=== PATIENT | female | born 1990 | race Caucasian/White ===

== ENCOUNTER 2016-08-02 14:57 | Emergency (ER) | payer OTHER ==
[~2016-08-02] VITALS: Wt 70.0 kg
[~2016-08-02 14:57] MED LIST: NITR-58 PO
--- NOTE | 2016-08-02 16:51 | ERD ---
ER Documentation Chief Complaint Date/Time DATE: 08/02/16 TIME: 16:49 Chief Complaint abdominal pain 4 mos preg. no vag bleed. no sob noted. HPI Patient is a 26-year-old female who is who presents to the ED with body aches, chills that started this morning. She states that her son has had a fever and has had a cough. She also complains of mild pelvic pain. Her last normal menstrual period was 03/19/16. She is approximately 19 weeks . Her OB [facility] She denies vaginal bleeding. She denies nausea, vomiting, diarrhea. She does have a history of constipation and is taking MiraLAX as prescribed by her physician. She states that her last bowel movement was this morning. She also complains of mild reflux. She denies weakness, dizziness. She denies chest pain, shortness of breath, cough or difficulty breathing. She denies leg pain or swelling. ROS All systems reviewed and are negative except as per history of present illness. Medications Home Meds Active Scripts Acetaminophen* (Tylophen*) 500 Mg Capsule, 1 CAP PO Q6H Y for PAIN AND OR ELEVATED TEMP, #20 CAP Prov:OANH MEEHAN PA-C 08/02/16 Nitrofurantoin Monohyd Macrocr* (Macrobid*) 100 Mg Capsr, 100 MG PO BID for 7 Days, CAP Prov:TICO KNOTT 04/30/16 Allergies Allergies: Coded Allergies: No Known Allergy (Unverified , 08/02/16) PMhx/Soc History of Surgery: Yes (GALLSTONES) Anesthesia Reaction: No Hx Neurological Disorder: No Hx Respiratory Disorders: No Hx Cardiac Disorders: No Hx Psychiatric Problems: No Hx Miscellaneous Medical Probl: Yes (gallstones) Hx Alcohol Use: No Hx Substance Use: No Hx Tobacco Use: No Smoking Status: Never smoker Physical Exam Vitals Vital Signs Date Time Temp Pulse Resp B/P Pulse Ox O2 Delivery O2 Flow Rate FiO2 08/02/16 18:07 98.2 78 20 119/61 98 Room Air 08/02/16 15:04 98.6 89 20 117/58 98 Physical Exam GENERAL: Well-developed, well-nourished female. Appears in no acute distress. HEAD: Normocephalic, atraumatic. EYES: Pupils are equally reactive bilaterally. EOMs grossly intact. No conjunctival erythema. ENT: Moist mucous membranes. No uvula deviation. No kissing tonsils. No exudates. NECK: Supple. No lymphadenopathy or thyromegaly. No meningismus. negative kernig. negative brudinski. LUNG: Clear to auscultation bilaterally. No rhonchi, wheezing, rales or coarse breath sounds. HEART: Regular rate and rhythm. No murmurs, rubs or gallops. ABDOMEN: No scars, ecchymosis or rashes noted. Soft, nontender, and nondistended. Positive bowel sounds in all four quadrants. No rebound tenderness , no guarding. (-) McBurneys point tenderness. No CVA tenderness. Mild pelvic tenderness BACK: No midline tenderness. Extremities: Equal pulses bilaterally. No peripheral clubbing, cyanosis or edema. No unilateral leg swelling. Negative Homans sign NEUROLOGIC: Alert and oriented. Moving all four extremities. 5/5 strength in all extremities. Normal speech. Steady gait. SKIN: Normal color. Warm and dry. No rashes or lesions. Capillary refill < 2 seconds Result Diagram: 08/02/16 1645 08/02/16 1645 Results 24 hrs Laboratory Tests Test 08/02/16 16:45 08/02/16 17:20 Alanine Aminotransferase (ALT/SGPT) 86IU/L Albumin 3.9g/dl Albumin/Globulin Ratio 1.21 Alkaline Phosphatase 86IU/L Anion Gap 14 Aspartate Amino Transf (AST/SGOT) 48IU/L Basophils # 0.010^3/ul Basophils % 0.1% Beta HCG, Quantitative 92903.0mIU/ml Blood Morphology Comment Blood Urea Nitrogen 6mg/dl Calcium Level 9.4mg/dl Carbon Dioxide Level 25mmol/L Chloride Level 103mmol/L Creatinine 0.46mg/dl Direct Bilirubin 0.00mg/dl Eosinophils # 0.210^3/ul Eosinophils % 2.3% Globulin 3.20g/dl Glucose Level 107mg/dl Hematocrit 37.8% Hemoglobin 12.8g/dl Indirect Bilirubin 0.6mg/dl Lipase 76U/L Lymphocytes # 0.510^3/ul Lymphocytes % 6.3% Mean Corpuscular Hemoglobin 30.7pg Mean Corpuscular Hemoglobin Concent 33.9g/dl Mean Corpuscular Volume 90.4fl Mean Platelet Volume 10.9fl Monocytes # 0.510^3/ul Monocytes % 6.6% Neutrophils # 7.110^3/ul Neutrophils % 84.7% Nucleated Red Blood Cells # 0.010^3/ul Nucleated Red Blood Cells % 0.0/100WBC Platelet Count 34180^3/UL Potassium Level 3.9mmol/L Red Blood Count 4.1810^6/ul Red Cell Distribution Width 14.1% Sodium Level 138mmol/L Total Bilirubin 0.6mg/dl Total Protein 7.1g/dl White Blood Count 8.310^3/ul Urine Bacteria RARE Urine Bilirubin NEGATIVE Urine Clarity CLEAR Urine Color LT. YELLOW Urine Glucose NEGATIVE% Urine Hemoglobin NEGATIVE Urine Ketones NEGATIVE Urine Leukocyte Esterase TRACE Urine Microscopic RBC 0-2/HPF Urine Microscopic WBC 0-2/HPF Urine Nitrite NEGATIVE Urine Specific [place] 1.025 Urine Squamous Epithelial Cells MODERATE Urine Total Protein NEGATIVE Urine Urobilinogen 0.2 E.U./dL Urine pH 6.0 Current Medications Medications (Trade) Dose Ordered Sig/Luna Route PRN Reason Start Time Stop Time Status Last Admin Dose Admin Acetaminophen (Tylenol Tab) 500 mg ONCE STAT PO 08/02/16 17:59 08/02/16 18:00 DC 08/02/16 18:05 Procedures/MDM ER COURSE: I kept the patient and/or family informed of laboratory and diagnostic imaging results throughout the emergency room course. EKG, MONITORS, & DIAGNOSTIC IMAGING: [place] [id number] Radiology Main Line: [phone] DIAGNOSTIC IMAGING REPORT Patient: SCHUYLER BERGER : 1990 Age: 26 Sex: F MR #: [id number] DOS: 08/02/16 1624 Ordering MD: OANH MEEHAN PA-C Location: [facility] Room/Bed: PROCEDURE: US OB. CLINICAL INDICATION: Size and dates , pelvic pain TECHNIQUE: Multiple sonographic images of the pelvis and gravid uterus were obtained. The images were reviewed on a PACS workstation. COMPARISON: 04/30/2016 FINDINGS: There is a single viable intrauterine gestation. Cardiac activity is present with 159 beats per minute. There is a vertex presentation. The placenta is posterior. There is no evidence for an abruption or placenta previa. There is a normal amount of amniotic fluid with a MVP = 5.4 cm. Measurements were made in order to determine age. The results are as follows: BPD = 4.4 cm HC = 16.8 cm AC = 14.6 cm FL = 3.1 cm Estimated gestational age of approximately 19 weeks and 4 days based on ultrasound measurements. Clinical age: 19 weeks and 3 days. The estimated date of delivery is 12/23/16, based on ultrasound measurements. The EFW = 309 g, 63.7%, based on LMP age. RPTAT: AA IMPRESSION: Single viable intrauterine gestation of approximately 19 weeks and 4 days based on ultrasound measurements. .Vasiliy Alva MD, Date Time Electronically viewed and signed by .Vasiliy Alva MD, on 08/02/2016 17: 02 .S/ CC: OANH MEEHAN PA-C LAB INTERPRETATION: CBC showed no evidence of systemic infection or severe anemia. CMP showed no evidence of electrolyte abnormalities, severe acidosis, alkalosis , renal failure, or liver disease. Lipase showed no evidence of acute pancreatitis. UA showed no evidence of acute infection or hematuria. MEDICAL DECISION MAKING: I have consulted with Dr. Rosales who has reviewed her laboratory studies. This is a 26-year-old female who is who presents with pelvic pain, body aches, chills. Vital signs were reviewed. Patient is afebrile. Patient is not hypoxic. Patient likely has a URI of viral etiology. Low suspicion for pneumonia, PE, pneumothorax, ACS, epiglottitis, obstruction, TB, pertussis, meningitis, sepsis. Low suspicion for peritonsillar abscess, strep pharyngitis, mononucleosis, dental abscess. Her trace leukocytes is likely related to a dirty catch. Low suspicion for ovarian torsion, PID, tuboovarian abscess, ectopic , bowel obstruction, pyelonephritis,appendicitis, UTI, nephroliathisis, septic stone, obstructed stone. Low suspicion for ectopic , , molar , endometriosis, PID, placenta previa, placenta abruptia, preeclampsia, eclampsia, anemia, endometritis, cervicitis. Low suspicion for ACS, AAA, perforated ulcer, bowel obstruction, cholecystitis, choledocholithiasis, cholangitis, pancreatitis, hepatic abscess, appendicitis, diverticulitis, nephrolithiasis, septic stone, obstructed stone. I do not think any other imaging studies is needed at this time. patient does not need to be admitted at this time. DISCHARGE: At this time, patient is stable for discharge and outpatient management with no new complaints during the ER course. Patient was sent home with Tylenol. Patient will be discharged home with instructions to recheck for new or worsening symptoms such as fever, nausea, weakness, LOC and to follow up with primary care in the next 1-2 days. Patient was advised to return to the ER for any new or worsening symptoms. Plan was discussed and patient and/or family understands and agrees. Home instructions were given. Departure Diagnosis: Primary Impression: URI, acute Condition: Stable Additional Instructions: Call your primary care doctor TOMORROW for an appointment during the next 1-2 days.See the doctor sooner or return here if your condition worsens before your appointment time. OANH MEEHAN PA-C Aug 02, 2016 16:51
[2016-08-02 16:58] LABS: BASOPHILS % 0.1 % (0.0-2.0); EOSINOPHILS # 0.2 10^3/ul (0.0-0.5); EOSINOPHILS % 2.3 % (0.0-7.0); HEMATOCRIT 37.8 % (37.0-47.0); HEMOGLOBIN 12.8 g/dl (12.0-16.0); LYMPHOCYTES # 0.5 10^3/ul (0.8-2.9); LYMPHOCYTES % 6.3 % (15.0-51.0); MEAN CORPUSCULAR HEMOGLOBIN 30.7 pg (29.0-33.0); MEAN CORPUSCULAR HGB CONC 33.9 g/dl (32.0-37.0); MEAN CORPUSCULAR VOLUME 90.4 fl (82.0-101.0); MEAN PLATELET VOLUME 10.9 fl (7.4-10.4); MONOCYTE # 0.5 10^3/ul (0.3-0.9); MONOCYTES % 6.6 % (0.0-11.0); NEUTROPHIL # 7.1 10^3/ul (1.6-7.5); NEUTROPHILS % 84.7 % (39.0-77.0); PLATELET COUNT 193 10^3/UL (140-440); RED BLOOD COUNT 4.18 10^6/ul (4.20-5.40); RED CELL DISTRIBUTION WIDTH 14.1 % (11.5-14.5); UNCORRECTED WBC 8.3 10^3/ul (4.8-10.8); WHITE BLOOD COUNT 8.3 10^3/ul (4.8-10.8)
[2016-08-02 17:00] LABS: ALBUMIN 3.9 g/dl (3.3-4.9)
[2016-08-02 17:01] LABS: POTASSIUM 3.9 mmol/L (3.5-5.1)
--- NOTE | 2016-08-02 17:02 | RADRPT ---
PROCEDURE: US OB. CLINICAL INDICATION: Size and dates , pelvic pain TECHNIQUE: Multiple sonographic images of the pelvis and gravid uterus were obtained. The images were reviewed on a PACS workstation. COMPARISON: 04/30/2016 FINDINGS: There is a single viable intrauterine gestation. Cardiac activity is present with 159 beats per min [place]. There is a vertex presentation. The placenta is posterior. There is no evidence for an abruption or placenta previa. There is a normal amount of amniotic fluid with a MVP = 5.4 cm. Measurements were made in order to determine age. The results are as follows: BPD =4.4 cm HC =16.8 cm AC =14.6 cm FL =3.1 cm Estimated gestational age of approximately 19 weeks and 4 days based on ultrasound measurements. Clinical age: 19 weeks and 3 days. The estimated date of delivery is 12/23/16, based on ultrasound measurements. The EFW = 309 g, 63.7%, based on LMP age. RPTAT: AA IMPRESSION: Single viable intrauterine gestation of approximately 19 weeks and 4 days based on ultrasound measu rements. .Vasiliy Alva MD, Date Time Electronically viewed and signed by .Vasiliy Alva MD, on 08/02/2016 17:02 .S/
[2016-08-02 17:03] LABS: ALBUMIN/GLOBULIN RATIO 1.21; BILIRUBIN,INDIRECT 0.6 mg/dl (0-1.1); BILIRUBIN,TOTAL 0.6 mg/dl (0.2-1.3); CREATININE 0.46 mg/dl (0.44-1.00); TOTAL PROTEIN 7.1 g/dl (6.1-8.1)
[2016-08-02 17:04] LABS: CALCIUM 9.4 mg/dl (8.4-10.2)
[2016-08-02 17:14] LABS: CONDITION 1
[2016-08-02 17:33] LABS: ADD UMIC YES; URINE BILIRUBIN (Dip) NEGATIVE (NEGATIVE); URINE BLOOD (Dip) NEGATIVE (NEGATIVE); URINE COLOR LT. YELLOW (YELLOW); URINE GLUCOSE (Dip) NEGATIVE (NEGATIVE); URINE KETONES (Dip) NEGATIVE (NEGATIVE); URINE LEUKOCYTE ESTERASE (Dip) TRACE (NEGATIVE); URINE NITRITE (Dip) NEGATIVE (NEGATIVE); URINE TOTAL PROTEIN (Dip) NEGATIVE (NEGATIVE); URINE UROBILINOGEN (Dip) 0.2 E.U./dL (0.1-1.0)
[2016-08-02 17:44] LABS: BACTERIA,URINE RARE; SQUAMOUS EPITHELIAL CELL,UR MODERATE; URINE RBCS 0-2 /HPF (0)
[2016-08-02] MEDS ORDERED: ACETAMINOPHEN 500 MG TAB PO STA (17:59)
[2016-08-02] MEDS ORDERED: ACET500C5 PO (18:00)
[2016-08-02 18:07] VITALS: BP 119/61; PULSE 78; RESP 20; TEMP 98.2
== END 2016-08-02 18:07 | disposition home or self-care (01) ==
LOC: FTE 14:57
DX: O99.512 Diseases of the respiratory system complicating pregnancy, second trimester (principal); J06.9 Acute upper respiratory infection, unspecified; R10.2 Pelvic and perineal pain; O26.892 Other specified pregnancy related conditions, second trimester; Z3A.19 19 weeks gestation of pregnancy
CPT/HCPCS: 36415; 76805; 80053; 81001; 83690; 84702; 85025; 86900; 86901; Z7502; Z7610; 81003

== ENCOUNTER 2016-10-11 02:07 | Outpatient (CLI) | payer OTHER ==
[~2016-10-11] VITALS: Ht 165.1 cm; Wt 82.8 kg
[~2016-10-11 02:07] MED LIST changes: +ACET500C5 PO
[2016-10-11 02:23] VITALS: BP 97/53; PULSE 72
[2016-10-11 02:24] VITALS: Ht 165.1 cm; Wt 82.8 kg
[2016-10-11] MEDS ORDERED: ACET500C5 PO (02:30)
[2016-10-11] MEDS ORDERED: PREN1TAB79 PO (02:30)
[2016-10-11] MEDS ORDERED: AMOX500T PO (02:30)
--- NOTE | 2016-10-11 02:50 | PN ---
Date/Time of Note Date/Time of Note DATE: 10/11/16 TIME: 02:46 OB Subjective Subjective Subjective Patient is a 29 weeks and 1 days of gestation who presents with right lateral abdominal pain for 2 days She reports no contractions, no vaginal bleeding and no leaking fluid OB Objective Objective Objective NST is reactive UA negative HEENT: WNL Heart: Rhythm Normal Abdomen: WNL Extremities: Normal Cervical Dilatation: None Membranes: Intact Accelerations: Accelerations Present Decelerations: No Decelerations OB Assessment/Plan Other Assessment: Abdominal pain Other plan: DC home Follow up with [facility] VEDA HARDING Oct 11, 2016 02:50
[2016-10-11 02:59] LABS: URINE BILIRUBIN (Dip) NEGATIVE (NEGATIVE); URINE BLOOD (Dip) NEGATIVE (NEGATIVE); URINE GLUCOSE (Dip) NEGATIVE (NEGATIVE); URINE KETONES (Dip) NEGATIVE (NEGATIVE); URINE NITRITE (Dip) NEGATIVE (NEGATIVE); URINE TOTAL PROTEIN (Dip) NEGATIVE (NEGATIVE); URINE UROBILINOGEN (Dip) 0.2 E.U./dL (0.1-1.0)
--- NOTE | 2016-10-11 03:03 | TRIAGE ---
OB Triage Datetime Report Generated by CPN: 10/11/2016 03:02 Datetime: 10/11/2016 02:30 Labor Evaluation Frequency: NONE Monitor Mode: External Duration (sec)2399: NONE Pattern: Normal: <= 5 Contractions in 10 Minutes Heart Rate FHR Baseline Rate: 145 Monitor Mode: External US FHR Baseline Changes: No Baseline Change Variability: Moderate 6-25 bpm Accelerations: 10X10 Decelerations: None Category: Category I Datetime: 10/11/2016 02:26 EGA: 29.1 Datetime: 10/11/2016 02:17 Assessment Type: Triage Maternal Assessment Level of Consciousness: Fully Conscious Headache: Denies Blurred Vision: No Respiratory Effort: Unlabored; Regular Rhythm; Equal Expansion Nausea/Vomiting: Denies RUQ Epigastric Pain: Denies Lower Extremities Edema: None Upper Extremities Edema: None Facial Edema: None Datetime: 10/11/2016 02:16 Time of Arrival: 10/11/2016 02:00 Arrived By: Ambulatory Arrived From: Home Chief Complaint: LEFT SIDE ABD PAIN X2DAYS;CONSTANT Movement: Present Rupture of Membranes: Denies Vaginal Bleeding: None Vaginal Discharge: Denies Recent Sexual Intercouse: Denies Abdominal Trauma: Not Applicable Patient Complaints: Cramping Time Provider Notified: 10/11/2016 02:34 Provider Notified: FAZILAT Initial Plan: EFM,CALL OB Datetime: 10/11/2016 02:13 Temperature Route: Oral Pain Assessment Pain Scale: 8 Pain Presence: Constant Pain Type: Cramping Pain Location: Abdomen (Annotations: LEFT LATERAL SIDE ONLY) Pain Relief Measures: Comfort Measures Datetime: 10/11/2016 02:12 Monitor Mode: Palpation Resting Tone [place]: Relaxed Contraction Comments: ABD SOFT, NON TENDER. SLIGHT GRIMACING AT LEFT LATERAL SIDE Datetime: 10/11/2016 02:10 Stage of : OB Triage Datetime: 10/11/2016 02:09 Contraction Comments: APPLIED Comments: APPLIED
[2016-10-11 03:09] LABS: ADD UMIC NO; URINE COLOR YELLOW (YELLOW); URINE LEUKOCYTE ESTERASE (Dip) NEGATIVE (NEGATIVE)
== END 2016-10-11 03:20 | disposition home or self-care (01) ==
LOC: OBT 02:07 → L-D 02:08 → OBT 03:20
PROVIDERS: ATTEND Obstetrics & Gynecology
DX: O60.03 Preterm labor without delivery, third trimester (principal); Z3A.29 29 weeks gestation of pregnancy
CPT/HCPCS: 81003; Z7500; G0463

== ENCOUNTER 2017-07-28 19:29 | Emergency (ER) | END 2017-07-29 02:09 | disposition home or self-care (01) ==

== ENCOUNTER 2017-07-29 11:09 | Emergency (ER) | END 2017-07-29 14:16 | disposition left against medical advice (07) ==

== ENCOUNTER 2018-05-14 06:40 | Day surgery (SDC) | END 2018-05-14 11:45 | disposition home or self-care (01) ==